=== PATIENT | female | born 1945 | race Caucasian/White ===

== ENCOUNTER 2017-11-10 16:29 | Inpatient (IN) | payer OTHER, BC ==
--- NOTE | 2017-11-10 21:46 | HP ---
CHIEF COMPLAINT: knee pain PCP: Socrates Gallegos HISTORY OF PRESENT ILLNESS: 72 year old female with a past medical history of DM, HTN, chronic anemia, breast CA, bilateral total knee replacements was admitted first to [facility] on 11/07/17 for a fall. Morning before the admission, she slipped on dirty floor and fell, hitting her head and her R knee without loss of consciousness. Patient has had worsening R knee pain for many months. Patient was worked up at [facility] previously for worsening R knee pain (this was prior to her fall). At that admission, patient had XR showing intact hardware and an effusion along with an elevated ESR/CRP and positive lyme titers - for which she was treated with amoxicillin. At [facility], her CT head and C spine was negative, but an xray of the R knee showed transverse fracture through patella. Ortho at [facility] was on the case there and aspirated the knee. Arthrocentesis showed 96% neutrophils, 97163 WBC, 23464 RBC, no crystals and cultures were pending. She was given a dose of vancomycin and ceftriaxone on 11/09. Patient was hypertensive despite being on her home amlodipine and quinapril, so the physicians at [facility] started metoprolol and HCTZ. Patient was transferred to [facility] per Dr. Pierre's request for surgical evaluation of the R knee. At present, patient was evaluated at bedside. She states that she fell on Sunday, falling forward and hitting her R knee and R side of her head. She states that her knee is in pain and rates it at around a 6-7/10. She also states that her knee has felt "hot". Patient showed us report of her lyme titers (5 positive IgGs and 1 positive IgM, suggestive of previous lyme infection). She states she does not have a fever currently. Denies any chest pain, SOB, nausea, vomiting, or diarrhea. Recent Travel: none PAST MEDICAL HISTORY: DM, HTN, chronic anemia, breast CA, bilateral total knee replacements PAST SURGICAL HISTORY: b/l knee replacements HOME MEDICATIONS: Amlodipine 5 Simvastatin 10 Accupril 10 Clobetasol cream 0.5 Metoprolol 25 (Started at [facility]) HCTZ 25 (started at [facility]) Glipizide REVIEW OF SYSTEMS CONSTITUTIONAL: Absent: fever, chills, diaphoresis, generalized weakness, malaise, loss of appetite, weight change HEENT: Absent: rhinorrhea, nasal congestion, throat pain, throat swelling, difficulty swallowing, mouth swelling, ear pain, eye pain, visual changes CARDIOVASCULAR: Absent: chest pain, syncope, palpitations, irregular heart rate, lightheadedness , peripheral edema RESPIRATORY: Absent: cough, shortness of breath, dyspnea with exertion, orthopnea, wheezing, stridor, hemoptysis GASTROINTESTINAL: Absent: abdominal pain, abdominal distension, nausea, vomiting, diarrhea, constipation, melena, hematochezia GENITOURINARY: Absent: dysuria, frequency, urgency, hesitancy, hematuria, flank pain, genital pain MUSCULOSKELETAL: arthralgia, joint swelling Absent: myalgia, back pain, neck pain SKIN: Absent: rash, itching, pallor HEMATOLOGIC/IMMUNOLOGIC: Absent: easy bleeding, easy bruising, lymphadenopathy, frequent infections ENDOCRINE: Absent: unexplained weight gain, unexplained weight loss, heat intolerance, cold intolerance NEUROLOGIC: Absent: headache, focal weakness or paresthesias, dizziness, unsteady gait, seizure, mental status changes, bladder or bowel incontinence PSYCHIATRIC: Absent: anxiety, depression, suicidal or homicidal ideation, hallucinations. PHYSICAL EXAMINATION GENERAL: Awake, alert, and fully oriented, in no acute distress. HEAD: mild traumatic abrasions noted on R side of forehead EYES: Pupils equal, round and reactive to light, extraocular movements intact, sclera anicteric, conjunctiva clear. No lid lag. EARS, NOSE, THROAT: Ears normal, nares patent, oropharynx clear without exudates. Moist mucous membranes. NECK: Normal range of motion, supple without lymphadenopathy, JVD, or masses. LUNGS: Breath sounds equal, clear to auscultation bilaterally. No wheezes, and no crackles. No accessory muscle use. HEART: Regular rate and rhythm, normal S1 and S2, 4/6 systolic murmur on R and L 2nd intercostal space ABDOMEN: Obese, Soft, nontender, not distended, normoactive bowel sounds, no guarding, no rebound, no masses. No hepatomegaly or splenomegaly. MUSCULOSKELETAL: Normal range of motion in upper extremities, limited range of motion of RLE, muscle strength 4/5 in RLE in hip flexion and R knee flexion. No bony deformities or tenderness. No CVA tenderness. UPPER EXTREMITIES: 2+ pulses, warm, well-perfused. No cyanosis. No clubbing. No peripheral edema. LOWER EXTREMITIES: 2+ pulses, warm, well-perfused. No calf tenderness. bilateral peripheral edema 2+, R knee warm to touch, non-tender to palpation, non-erythematous, scars visible from prior knee replacements NEUROLOGICAL: Cranial nerves II-XII intact. Normal speech. Normal gait. PSYCHIATRIC: Cooperative. Good eye contact. Appropriate mood and affect. SKIN: Warm, dry, normal turgor, no rashes or lesions noted, normal capillary refill. VITAL SIGNS ON EXAMINATION BP 133/110 HR 76 Temp 99.9 RR 16 O2 97% RA ASSESSMENT/PLAN: 72 year old female with a past medical history of DM, HTN, chronic anemia, breast CA, bilateral total knee replacements was transferred to [facility] per Dr. Abdulaziz Pierre for evaluation and management of R knee fracture. #Septic Right Knee: patient was febrile previously, current temp 99.9 with warm knee (not currently erythematous) and knee tap showing 96% neutrophils, 48583 WBC, 18332 RBC, no crystals and cultures were pending. -joint was already aspirated - Call [phone] (number at [facility]) and ask to speak with [employer] for updates on knee aspirate culture results -blood cultures -EKG -Vanc 1g/Ceftriaxone 2gm stat, revaluate Abx tomorrow per ID reccs -ID consult Dr. Fraser -Trend ESR/CRP -tylenol for fevers #Right Knee Fracture: -CT R knee w/o contrast with extension to distal femur and proximal tibia -stat CBC, CMP, Mg, Phos -patient can ambulate but only if her knee is in her brace -Physical therapy request -Dr. Pierre Consult #Lyme History: doesn't appear to be active disease - patient's lab values are with patient - 5 positive IgGs and 1 positive IgM -not likely picture of lyme, possibly previous lyme disease -Dr. arrington consult rheum requested by Dr. Abdulaziz Pierre -Appreciate ID recommendations #Hypertension: patient currently hypertensive -Start home amlodipine 5 QD -Start home accupril 10 QD -Start metoprolol 12.5 BID -Start HCTZ 25mg QD #Diabetes: unknown glucose level at present time -BGMs Q6 -ISS #FEN IV NS @ 83cc/hr - one bag Replete electrolytes as necessary Diabetic/Sodium diet #Prophylaxis Lovenox 30mg BID #Disposition -Admit to med-surg Visit type - Emergency Visit Emergency Visit: No - New Patient This patient is new to me today: Yes Date on this admission: 11/11/17 - Critical Care Critical Care patient: No
[2017-11-10] MEDS ORDERED: SODIUM CHLORIDE 1,000 ML IV SCH (23:30)
[2017-11-10] MEDS ORDERED: VANCOMYCIN 1,000 MG in DEXTROSE 5%-WATER - 250 ML IVPB ONE (23:45)
[2017-11-10] MEDS ORDERED: CEFTRIAXONE IN IS-OSM DEXTROSE 2 GM/50 ML BAG IVPB ONE (23:45)
[2017-11-10] MEDS ORDERED: CEFTRIAXONE 2 GM in DEXTROSE 5%-WATER - 100 ML IVPB ONE (23:50)
[2017-11-10] MEDS ORDERED: VANCOMYCIN 1 GRAM (PRE-DOCKED) 1,000 MG/250 ML BAG IVPB ONE (23:50)
--- NOTE | 2017-11-11 00:05 | PN ---
Teaching Attending Note Name of Resident: Michael Castorena ATTENDING PHYSICIAN STATEMENT I saw and evaluated the patient. Chart, data reviewed. I reviewed the resident's note and discussed the case with the resident. I agree with the resident's findings and plan as documented. SUBJECTIVE: 72yo obese woman with DM, HTN, chronic anemia, hx of breast ca, b/l TKR [address] [facility] to [facility] for concern of Prosthetic joint infection/septic arthritis of right knee. Patient is s/p fall a few days ago and landed on her knees and hit the right sided of her head. She has been experiencing worsening pain of her right knee s/p fall and reported that the knee is warm to touch and painful. Patient had unremarkable head CT and CT of spine at [facility]. She underwent arthrocentesis of right knee which showed 41, 000 wbc with 96% neutrophils, 96k rbc, no crystals. Cultures taken from synovial fluid. 11/09 it is noted that she had fever of 100.5F Blood cultures drawn. Pt was given vancomycin and ceftriaxone. Subsequently transferred to [facility] for possible surgical intervention. Patient noted to have lyme serology from 09/30- meeting criteria for + IgG but failed to meet IgM criteria. This suggest old Lyme infection which was previously treated. OBJECTIVE: Last Vital Signs Temp Pulse Resp BP Pulse Ox 98.3 F 67 21 132/62 11/10/17 20:00 11/10/17 20:00 11/10/17 20:00 11/10/17 20:00 General- appears comfortable, NAD, aaox3, in good spirits HEENT- at, nc, poor dentition neck -supple, no JVD, no masses cv-s1+s2+ RRR, + systolic murmur Chest - cta b/l abdomen- obese, nt, BS+ Ext- lower ext pitting edema b/l Right knee -old vertical scar, warm to touch ASSESSMENT AND PLAN: #Concern for prosthetic joint infection/septic arthritis given Hx of pain, fever , and neutrophil predominant high WBC count from arthocentesis. Blood cultures and synovial fluid cultures drawn at outside hospital and are to be followed up. Doubt gout or pseudogout as there were no crystals seen on arthrocentesis specimen. Lyme serology c/w old Lyme infection. -blood cx x2 -f/u blood, synovial fluid cultures from [facility] -CT of right knee -Ceftriaxone 2g IV stat -vancomcyin 1g IV stat -Orthopedics evaluation for surgical intervention and possible hardware removal. -ID consult for possible septic arthritis and any further workup for Lyme -continue home medications for chronic medical problems -heparin sc for DVT ppx
--- NOTE | 2017-11-11 00:39 | PN ---
Progress Note (short form) - Note Progress Note: 72F s/p mechanical fall 4 days [employer] p/w RIGHT dmitri-prosthetic (TKA) patella fx. Pt. transferred from [facility], [facility]. (+) Outside Lyme's Disease titers. All outside ([facility]) labs and vitals reviewed. At [facility], WBC 7, ESR 85 & CRP 4.2. Pt. apyrexic; no concern for sepsis. Right knee arthrocentesis ([facility]): - 35cc sanguinous fluid. - WBC: 41,800. - 96% segmented neutrophils. - 0 crystals. PE: AAO x 3, NAD. Right Knee: Skin intact. (+) Diffuse RLE lymphedema. Midline incision well healed, intact. (-) TTP. (+) Mild warmth, dmitri-articular soft tissue swelling. ( -) Erythema, drainage. (+) Sulcus sign over patellar fracture gap w/(+) resolving ecchymosis. Able to SLR w/30 deg. extension lag. NVI distally. Outside ([facility]) R Knee X-Rays: Cemented TKA components intact & in place w/good overall alignment. (+) Transverse dmitri-prosthetic patellar fx. No other evidence of subsidence nor loosening. A/P: 72F s/p mechanical fall 4 days [employer] p/w RIGHT dmitri-prosthetic (TKA) patella fx. -Pain control. -Chemical & mechanical DVT PPx. -Incentive spirometry. -Maintain right knee immobilizer at all times. -No ROM right knee. -PT/OT/Rehab, OOBTC. -TTWB RLE. -Please obtain ID & rheumatology consultations for management given (+) outside Lyme's titers. -Hold all empiric antibiotics at this time. If full prosthesis explantation is ultimately indicated, empiric antibiotics may compromise definitive pathogen culture and directed treatment. -Will f/u right knee aspirate Gram Stain & culture ([facility]). -Care per primary medical team. -Will follow. Abdulaziz Pierre MD (Orthopaedic Surgery.
[2017-11-11] MEDS: ACETAMINOPHEN 325 MG TABLET (FP) PO PRN ×3 (02:12→21:47)
[2017-11-11] MEDS: METOPROLOL TARTRATE 25 MG TABLET (FP) PO SCH ×3 (02:13→21:47)
[2017-11-11 02:20] LABS: BASO % 1.2 % (0-2.0); EOS % 3.3 % (0-4.5); HEMATOCRIT 31.7 % (32.4-45.2); HEMOGLOBIN 10.1 GM/dL (10.7-15.3); LYMPH % 18.1 % (8-40); MCH 22.3 pg (25.7-33.7); MEAN CELL VOLUME 69.7 fl (80-96); MEAN PLT VOLUME 8.3 fl (7.5-11.1); MONO % 12.7 % (3.8-10.2); NEUT % 64.7 % (42.8-82.8); PLATELET COUNT 217 K/MM3 (134-434); RBC 4.55 M/mm3 (3.60-5.2); RDW 16.8 % (11.6-15.6); WHITE BLOOD COUNT 5.9 K/mm3 (4.0-10.0)
[2017-11-11 02:23] LABS: ADD RBC MORPHOLOGY YES
[2017-11-11] MEDS ORDERED: ENOXAPARIN NA (PORCINE) 30 MG/0.3 ML DISP.SYRIN SQ ONE (02:30)
[2017-11-11 02:32] LABS: ALBUMIN 2.7 g/dl (3.4-5.0); ANION GAP 10 (8-16); BILIRUBIN,TOTAL 1.2 mg/dL (0.2-1.0); BLOOD UREA NITROGEN 11 mg/dL (7-18); CALCIUM 8.8 mg/dL (8.5-10.1); CHLORIDE 103 mmol/L (98-107); CO2 25 mmol/L (21-32); CREATININE 0.7 mg/dL (0.55-1.02); GLUCOSE,RANDOM 168 mg/dL (74-106); MAGNESIUM 1.8 mg/dL (1.8-2.4); PHOSPHOROUS 2.7 mg/dL (2.5-4.9); POTASSIUM 3.8 mmol/L (3.5-5.1); SGOT/AST 55 U/L (15-37); SGPT/ALT 23 U/L (12-78); SODIUM 138 mmol/L (136-145); TOT PROT 7.5 g/dl (6.4-8.2)
[2017-11-11 02:33] LABS: ALK PHOS 100 U/L (45-117)
[2017-11-11 03:05] LABS: ANISOCYTOSIS 2+; MACROCYTOSIS 0; OVALOCYTE 1+
[2017-11-11 04:34] VITALS: BMI 36.1
[2017-11-11] MEDS: INSULIN SLIDING SCALE (NOVOLOG) 1 VIAL SQ SCH ×4 (06:14→21:48)
[2017-11-11 08:51] LABS: HEMATOCRIT 30.3 % (32.4-45.2); HEMOGLOBIN 9.7 GM/dL (10.7-15.3); MCHC 31.9 g/dl (32.0-36.0); MEAN CELL VOLUME 68.9 fl (80-96); MEAN PLT VOLUME 8.6 fl (7.5-11.1); PLATELET COUNT 216 K/MM3 (134-434); RBC 4.39 M/mm3 (3.60-5.2); RDW 16.5 % (11.6-15.6); WHITE BLOOD COUNT 5.6 K/mm3 (4.0-10.0)
[2017-11-11 09:05] LABS: ANION GAP 10 (8-16); BLOOD UREA NITROGEN 9 mg/dL (7-18); CALCIUM 7.8 mg/dL (8.5-10.1); CHLORIDE 107 mmol/L (98-107); CO2 23 mmol/L (21-32); CREATININE 0.6 mg/dL (0.55-1.02); GLUCOSE,RANDOM 140 mg/dL (74-106); MAGNESIUM 1.7 mg/dL (1.8-2.4); PHOSPHOROUS 3.1 mg/dL (2.5-4.9); POTASSIUM 3.8 mmol/L (3.5-5.1); SODIUM 140 mmol/L (136-145)
[2017-11-11] MEDS ORDERED: MAGNESIUM SULF 50% (8.12 MEQ/2 ML-1 GM VIAL) IVPB ONE (09:20)
[2017-11-11] MEDS ORDERED: MAGNESIUM SULFATE IN WATER 2 GM/50 ML IVPB IVPB ONE (09:30)
--- NOTE | 2017-11-11 09:33 | PN ---
Progress Note (short form) - Note Progress Note: Subjective: no pain in R knee, no CP or OSB . feels better than before . knows of a heart murmur since childhood Objective: Vital Signs: Vital Signs - 24 hr 11/10/17 11/11/17 20:00 06:00 Temperature 100 F H 98.3 F Pulse Rate 76 67 Respiratory 21 20 Rate Blood Pressure 133/110 132/55 Laboratory Results - last 24 hr 11/10/17 11/11/17 11/11/17 22:50 01:40 01:40 WBC 5.9 RBC 4.55 Hgb 10.1 L Hct 31.7 L MCV 69.7 L MCH 22.3 L MCHC 32.0 RDW 16.8 H Plt Count 217 MPV 8.3 Neutrophils % 64.7 Lymphocytes % 18.1 Monocytes % 12.7 H Eosinophils % 3.3 Basophils % 1.2 Hypochromia 1+ Polychromasia 2+ Poikilocytosis 2+ Anisocytosis 2+ Microcytosis 2+ Macrocytosis 0 Ovalocytes 1+ Sodium 138 Potassium 3.8 Chloride 103 Carbon Dioxide 25 Anion Gap 10 BUN 11 Creatinine 0.7 Creat Clearance w eGFR > 60 POC Glucometer 231 Random Glucose 168 H Calcium 8.8 Phosphorus 2.7 Magnesium 1.8 Total Bilirubin 1.2 H AST 55 H ALT 23 Alkaline Phosphatase 100 C-Reactive Protein Total Protein 7.5 Albumin 2.7 L Blood Type Antibody Screen 11/11/17 11/11/17 11/11/17 01:45 01:45 06:13 WBC RBC Hgb Hct MCV MCH MCHC RDW Plt Count MPV Neutrophils % Lymphocytes % Monocytes % Eosinophils % Basophils % Hypochromia Polychromasia Poikilocytosis Anisocytosis Microcytosis Macrocytosis Ovalocytes Sodium Potassium Chloride Carbon Dioxide Anion Gap BUN Creatinine Creat Clearance w eGFR POC Glucometer 145 Random Glucose Calcium Phosphorus Magnesium Total Bilirubin AST ALT Alkaline Phosphatase C-Reactive Protein 2.7 H Total Protein Albumin Blood Type B POSITIVE Antibody Screen Negative 11/11/17 11/11/17 11/11/17 07:30 07:30 07:30 WBC 5.6 RBC 4.39 Hgb 9.7 L Hct 30.3 L MCV 68.9 L MCH 22.0 L MCHC 31.9 L RDW 16.5 H Plt Count 216 MPV 8.6 Neutrophils % Lymphocytes % Monocytes % Eosinophils % Basophils % Hypochromia Polychromasia Poikilocytosis Anisocytosis Microcytosis Macrocytosis Ovalocytes Sodium 140 Potassium 3.8 Chloride 107 Carbon Dioxide 23 Anion Gap 10 BUN 9 Creatinine 0.6 Creat Clearance w eGFR POC Glucometer Random Glucose 140 H Calcium 7.8 L Phosphorus 3.1 Magnesium 1.7 L Total Bilirubin AST ALT Alkaline Phosphatase C-Reactive Protein 2.5 H Total Protein Albumin Blood Type Antibody Screen Physical Exam: NAD MMM. round equal pupils, no LAP in neck , no facial droop CV: RRR, 3/6 SM at base radiating to carotids, and LLSB. 3/6 SM at [place] with rad to axilla . Lungs : CTAb ext: thick , hyperpigmented skin with trace edema. b/l knee scars. R knee with dark hyperpigmented skin/slight erythema , incrased warmth and no TTP . DP 2+ Abd: soft, Nt, ND , NL BS cxray reviewed. records from [facility] reviewed. Assessment/Plan: 72 y/o lady with h/o DM , HTN, b/l TKR , chronic anemia, breast cancer s/p lumbectomy and Rtx , who presented to [facility] with R knee pain after a fall on , was found to have R patellar Fx and a knee effusion , and was transferred here for further eval per ortho 1- R knee effusion: with 41k WBC with 96% neutro, will be concerned fro septic joint despite no leukocytosis , but she had fever in [facility]. of course fluid analysis could be inflammatory . - would cover with Abx , pending synovial fluid cx and blood cx from [facility], and pending ID eval - ceftriaxone q 24 hr , and vanco ( dose at [facility] ) - synovial fluid cx was sent before first dose of vanco at [facility] , but pt was on amoxi as out pt for possible lyme - with the murmur heard on exam, will get Echo - ortho input appreciated. - ESR as out pt 130, CRP 5.8 --> ESR 85 & CRP 4.2 at [facility] ----> CRP 2.5 now , will check ESR - Internal med team at [facility] called [phone] , blood and synovial fluid cx is still pending - rheum consulted - UA 2.5 on 10/11/17 2- R patellar Fx : - immobilizer - tip toe WB - OOBTC - further mgt per ortho 3- HTN: cont norvasc , HCTZ, accuipril and lopressor. dc IVF 4- Microcytic anemia : chronic . - iron studies at [facility] included iron 79, TIBC 2009 L ) , transferrin 160 ( L ) , but no ferritin . - check ferritin - possible ACD, but with microcytosis might consider thalassemia , or other causes. will follow ferritin 5- Positive lyme titers, 10/11/17 indicating + igG ( 5 + bands ) , but ( 1+ band Ig M ) - ID help appreciated . 6- DM : SSI , hold orals 7- HLOC Visit type - Emergency Visit Emergency Visit: Yes ED Registration Date: 11/10/17 Care time: The patient presented to the Emergency Department on the above date and was hospitalized for further evaluation of their emergent condition. - New Patient This patient is new to me today: Yes Date on this admission: 11/11/17 - Critical Care Critical Care patient: No
[2017-11-11] MEDS: HYDROCHLOROTHIAZIDE 25 MG TABLET (FP) PO SCH (10:00)
[2017-11-11] MEDS: QUINAPRIL HCL 10 MG TABLET (FP) PO SCH (10:00)
[2017-11-11] MEDS: amLODIPine BESYLATE 5 MG TABLET (FP) PO SCH (10:00)
[2017-11-11] MEDS ORDERED: CEFTRIAXONE 1 G/50 ML PREMIX 50 ML IVPB SCH (10:30)
--- NOTE | 2017-11-11 14:59 | PN ---
Progress Note (short form) - Note Progress Note: 72F s/p mechanical fall 4 days [employer] p/w RIGHT dmitri-prosthetic (TKA) patella fx. Pain well controlled. No acute events overnight. (-) Chest pain, shortness of breath, nausea, vomiting, chills, sweats. (+) Voiding; (+) Flatus; (+) BM. Pt. transferred from [facility], [facility]. (+) Outside Lyme's Disease titers. All outside ([facility]) labs and vitals reviewed. At [facility], WBC 7, ESR 85 & CRP 4.2. Pt. apyrexic; no concern for sepsis. Right knee arthrocentesis ([facility]): - 35cc sanguinous fluid. - WBC: 41,800. - 96% segmented neutrophils. - 0 crystals. - Gram stain: NEGATIVE. - Culture: No growth to date x 2 days. PE: AAO x 3, NAD. Right Knee: Skin intact. (+) Diffuse, chronic RLE lymphedema. Midline incision well healed, intact. (-) TTP. (+) Mild warmth, dmitri-articular soft tissue swelling. (-) Erythema, drainage. (+) Sulcus sign over patellar fracture gap w/( +) resolving ecchymosis. Able to SLR w/30 deg. extension lag. NVI distally. Outside ([facility]) R Knee X-Rays: Cemented TKA components intact & in place w/good overall alignment. (+) Transverse dmitri-prosthetic patellar fx. No other evidence of subsidence nor loosening. A/P: 72F s/p mechanical fall 4 days [employer] p/w RIGHT dmitri-prosthetic (TKA) patella fx. -Very low clinical concern for septic arthritis right knee. -Pain control. -Chemical & mechanical DVT PPx. -Incentive spirometry. -Maintain right knee immobilizer at all times. -No ROM right knee. -PT/OT/Rehab, OOBTC. -TTWB RLE. -Please obtain ID & rheumatology consultations for management given (+) outside Lyme's titers. -Hold all empiric antibiotics at this time. If full prosthesis explantation is ultimately indicated, empiric antibiotics may compromise definitive pathogen culture and directed treatment. -Will f/u right knee aspirate Gram Stain & culture ([facility]). -Care per primary medical team. -Will follow. Abdulaziz Pierre MD (Orthopaedic Surgery.
--- NOTE | 2017-11-11 16:17 | PN ---
Progress Note (short form) - Note Progress Note: ID Consult dictated R TKA periprosthetic patella fracture s/p fall ? Septic arthritis + Lyme serology of questionable significance Await R knee aspirate cultures Observe off antibiotics Repeat lyme serology
[2017-11-11] MEDS: ENOXAPARIN NA (PORCINE) 30 MG/0.3 ML DISP.SYRIN SQ SCH (18:24)
[2017-11-11] MEDS ORDERED: INSULIN (NOVOLOG) ASPART 100 UNITS/ML 10ML VIAL ONE (18:36)
--- NOTE | 2017-11-11 18:54 | CONS ---
DATE OF CONSULTATION: DATE OF DICTATION: 11/11/2017 The patient is a 72-year-old female evaluated for possible septic arthritis. The patient was admitted to [facility] [place] November 07, 2017, after a mechanical fall. She had sustained trauma to her right knee and to her head prior to admission. She was found to have left knee pain and swelling. A knee tap was performed and yielded 35 mL of sanguineous fluid. Cell count revealed 41,000 white cells, 96% neutrophils, gram stain and crystals were reported as negative. She had been given doses of vancomycin and ceftriaxone. She is now admitted for further evaluation. X-rays showed a right TKA periprosthetic patellar fracture. She denies any pain at the present time. No fever or chills. Of note, patient reports having chronic right knee pain dating back several months prior to the fall and injury. A line titer was done in September and showed an ROSARIO of 0.95, which is slightly reactive, as well as several positive bands on western blot. Patient states she might have had a tick bite on the left upper extremity in the past; however, denies history of erythema migrans. He has a history of a chronic heart murmur. No other neurological complaints were offered. Past medical history positive for diabetes mellitus, hypertension, breast cancer, chronic anemia. PAST SURGICAL HISTORY: Status post breast lumpectomy, status post bilateral total knee replacement in 2014 and 2016. Allergies to SULFA. MEDICATIONS: Amlodipine, simvastatin, Accupril. SOCIAL HISTORY: Lives at home with family. Nonsmoker, nondrinker. SYSTEMS REVIEW: Neurologic: No loss of consciousness, seizure activity, focal weakness. Cardiac: Negative chest pain or palpitations. Respiratory: Negative cough or sputum production. Gastrointestinal: Negative vomiting or diarrhea. Genitourinary: Negative for urinary tract infection. LABORATORY DATA: White count 5.6, hematocrit 30.3, platelet count 216. BUN 9, creatinine 0.6, ESR 51, C-reactive protein 2.5. PHYSICAL EXAMINATION: General: She is awake and alert. She is out of bed to chair. Vital Signs: Temperature 98.2. Blood pressure 134/52. Pulse 66, regular. Respiration 20 per minute. Eyes: Sclerae anicteric. Heart Sounds: S1, S2, with a 2/6 pansystolic murmur. Lungs: Clear. Abdomen: Soft. No tenderness elicited. No mass, rebound or rigidity. Extremities: Bilateral lower extremity lymphedema with chronic venous stasis dermatitis. There are healed surgical scars over both knees. There is slight warmth and swelling of the right knee. No erythema is noted. Ecchymotic areas are present on the right lower extremity. No crepitus or fluctuance. IMPRESSION: 1. Right total knee arthroplasty periprosthetic patellar fracture status post mechanical fall. 2. Possible septic arthritis. 3. Positive line serology of questionable significance. Await right knee aspirate cultures, observe off antibiotic therapy. Will repeat line serology. Patient states she had been treated in the past with amoxicillin for unclear duration of time. Will discuss with Orthopedics. Thank you for the kind referral. JOSEFINA SAENZ M.D. [id number]
[2017-11-11] MEDS: ATORVASTATIN CA 10 MG TABLET (FP) PO SCH (21:47)
[2017-11-12] MEDS: ENOXAPARIN NA (PORCINE) 30 MG/0.3 ML DISP.SYRIN SQ SCH ×2 (06:33→17:33)
[2017-11-12] MEDS: INSULIN SLIDING SCALE (NOVOLOG) 1 VIAL SQ SCH ×3 (06:33→22:07)
[2017-11-12] MEDS ORDERED: PT OWN MED DRAWER 7, Y5N ONE ×2 (06:42→10:56)
[2017-11-12 08:30] LABS: BASO % 1.5 % (0-2.0); EOS % 5.3 % (0-4.5); HEMATOCRIT 31.3 % (32.4-45.2); LYMPH % 35.1 % (8-40); MCH 22.2 pg (25.7-33.7); MCHC 32.1 g/dl (32.0-36.0); MEAN CELL VOLUME 69.1 fl (80-96); MEAN PLT VOLUME 8.1 fl (7.5-11.1); MONO % 13.9 % (3.8-10.2); NEUT % 44.2 % (42.8-82.8); PLATELET COUNT 198 K/MM3 (134-434); RBC 4.52 M/mm3 (3.60-5.2); RDW 16.9 % (11.6-15.6); WHITE BLOOD COUNT 5.3 K/mm3 (4.0-10.0)
[2017-11-12 09:25] LABS: MAGNESIUM 1.7 mg/dL (1.8-2.4); PHOSPHOROUS 2.9 mg/dL (2.5-4.9); POTASSIUM 3.7 mmol/L (3.5-5.1)
[2017-11-12] MEDS: HYDROCHLOROTHIAZIDE 25 MG TABLET (FP) PO SCH (10:58)
[2017-11-12] MEDS: METOPROLOL TARTRATE 25 MG TABLET (FP) PO SCH ×2 (10:58→22:04)
[2017-11-12] MEDS: amLODIPine BESYLATE 5 MG TABLET (FP) PO SCH (10:58)
[2017-11-12] MEDS: QUINAPRIL HCL 10 MG TABLET (FP) PO SCH (11:00)
[2017-11-12] MEDS: ACETAMINOPHEN 325 MG TABLET (FP) PO PRN ×2 (11:11→22:06)
--- NOTE | 2017-11-12 11:41 | PN ---
Progress Note (short form) - Note Progress Note: ID Knee in a brace CT imaging shows hemarthosis with fracture of patella and bilateral prothesis knees Selected Entries 11/12/17 05:40 Temperature 98.8 F Pulse Rate 70 Respiratory 21 Rate Blood Pressure 134/56 Microbiology 11/11/17 01:40 Blood - Peripheral Venous Blood Culture - Preliminary NO GROWTH OBTAINED AFTER 24 HOURS, INCUBATION TO CONTINUE FOR 4 DAYS. 11/11/17 01:40 Blood - Peripheral Venous Blood Culture - Preliminary NO GROWTH OBTAINED AFTER 24 HOURS, INCUBATION TO CONTINUE FOR 4 DAYS. Laboratory Tests 11/11/17 11/12/17 07:56 07:00 WBC 5.3 RBC 4.52 Hgb 10.0 L Plt Count 198 ESR 51 H Assessment Fracture of the patellar At this point do not feel this is an infectious process of the knee CRP low Most likely trauma fracture related Plan Kindly recall as needed discussed with ROSEANNA Fraser MD
--- NOTE | 2017-11-12 17:08 | PN ---
Physical Exam: SUBJECTIVE: Patient seen and examined at bedside. No acute complaints, and no further pain in the R knee. Denies chest pain, SOB, nausea, vomiting, diarrhea, fevers, chills. OBJECTIVE: Vital Signs Period Temp Pulse Resp BP Sys/Uribe Pulse Ox Last 24 Hr 98.8 F-100 F 70-101 20-22 134-153/56-71 GENERAL: Awake, alert, and fully oriented, in no acute distress. LUNGS: Breath sounds equal, clear to auscultation bilaterally. No wheezes, and no crackles. No accessory muscle use. HEART: Regular rate and rhythm, normal S1 and S2, 4/6 systolic murmur on R and L 2nd intercostal space ABDOMEN: Obese, Soft, nontender, not distended, normoactive bowel sounds, no guarding, no rebound, no masses. No hepatomegaly or splenomegaly. MUSCULOSKELETAL: Normal range of motion in upper extremities, limited range of motion of RLE, muscle strength 4/5 in RLE in hip flexion and R knee flexion. No bony deformities or tenderness. No CVA tenderness. UPPER EXTREMITIES: 2+ pulses, warm, well-perfused. No cyanosis. No clubbing. No peripheral edema. LOWER EXTREMITIES: 2+ pulses, warm, well-perfused. No calf tenderness. bilateral peripheral edema 2+, non-tender to palpation, non-erythematous, scars visible from prior knee replacements NEUROLOGICAL: Cranial nerves II-XII intact. Normal speech. Normal gait. PSYCHIATRIC: Cooperative. Good eye contact. Appropriate mood and affect. SKIN: Warm, dry, normal turgor, no rashes or lesions noted, normal capillary refill. Laboratory Results - last 24 hr 11/11/17 11/11/17 11/12/17 18:21 21:44 06:32 WBC RBC Hgb Hct MCV MCH MCHC RDW Plt Count MPV Neutrophils % Lymphocytes % Monocytes % Eosinophils % Basophils % Potassium POC Glucometer 219 244 170 Phosphorus Magnesium Ferritin 11/12/17 11/12/17 07:00 07:00 WBC 5.3 RBC 4.52 Hgb 10.0 L Hct 31.3 L MCV 69.1 L MCH 22.2 L MCHC 32.1 RDW 16.9 H Plt Count 198 MPV 8.1 Neutrophils % 44.2 D Lymphocytes % 35.1 D Monocytes % 13.9 H Eosinophils % 5.3 H Basophils % 1.5 Potassium 3.7 POC Glucometer Phosphorus 2.9 Magnesium 1.7 L Ferritin 606.942 H Active Medications Generic Name Dose Route Start Last Admin Trade Name Freq PRN Reason Stop Dose Admin Acetaminophen 650 mg 11/10/17 23:27 11/12/17 11:11 Tylenol - PO 650 mg Q6H PRN Administration PAIN Amlodipine Besylate 5 mg 11/11/17 10:00 11/12/17 10:58 Norvasc - PO 5 mg DAILY LUAN Administration Atorvastatin Calcium 10 mg 11/11/17 22:00 11/11/17 21:47 Lipitor - PO 10 mg HS LUAN Administration Enoxaparin Sodium 30 mg 11/11/17 18:00 11/12/17 06:33 Lovenox - SQ 30 mg Q12H LUAN Administration Hydrochlorothiazide 25 mg 11/11/17 10:00 11/12/17 10:58 Hctz - PO 25 mg DAILY LUAN Administration Insulin Aspart 1 vial 11/11/17 07:00 11/12/17 06:33 Novolog Vial Sliding Scale - SQ 2 units ACHS LUAN Administration Protocol Metoprolol Tartrate 12.5 mg 11/10/17 23:45 11/12/17 10:58 Lopressor - PO 12.5 mg BID LUAN Administration Non-Formulary Medication 1 tube 11/11/17 10:00 Clobetasol Prop 0.05% Tp Oint [Temovate (Nf)] .ROUTE DAILY LUAN Quinapril HCl 10 mg 11/11/17 10:00 11/12/17 11:00 Accupril - PO 10 mg DAILY LUAN Administration ASSESSMENT/PLAN: 72 year old female with a past medical history of DM, HTN, chronic anemia, breast CA, bilateral total knee replacements was transferred to [facility] per Dr. Abdulaziz Pierre for evaluation and management of R knee fracture. #Right Knee Effusion: patient was febrile previously, knee tap showing 96% neutrophils, 34348 WBC, 38789 RBC, no crystals and cultures returned initially as no growth - Call [phone] (number at [facility] medical assistant secretary) and ask to speak with RED [employer] for updates on knee aspirate culture results - need to call again tomorrow -if final cultures negative, no surgery will be done (D/W attending physician) and management will be supportive -blood cultures negative -ID does not believe it is a septic joint, no current abx -ID consult Dr. Fraser -tylenol for fevers #Right Knee Fracture: stable currently -CT R knee w/o contrast showed R patellar fracture with surrounding hemarthrosis -patient can ambulate but only if her knee is in her brace -Physical therapy request -Dr. Pierre Consult #Lyme History: doesn't appear to be active disease - patient's lab values are with patient - 5 positive IgGs and 1 positive IgM -not likely picture of lyme, possibly previous lyme disease -Dr. arrington consult rheum requested by Dr. Abdulaziz Pierre -Appreciate ID recommendations #Hypertension: stbale -Start home amlodipine 5 QD -Start home accupril 10 QD -Start metoprolol 12.5 BID -Start HCTZ 25mg QD #Diabetes: stable -BGMs Q6 -ISS #FEN No standing fluids Replete electrolytes as necessary Diabetic/Sodium diet #Prophylaxis Lovenox 30mg BID #Disposition -Continue to monitor on med-surg Visit type - Emergency Visit Emergency Visit: No - New Patient This patient is new to me today: No - Critical Care Critical Care patient: No
[2017-11-12] MEDS ORDERED: INSULIN (NOVOLOG) ASPART 100 UNITS/ML 10ML VIAL ONE (17:13)
--- NOTE | 2017-11-12 17:37 | PN ---
Teaching Attending Note Name of Resident: Michael Castorena ATTENDING PHYSICIAN STATEMENT I saw and evaluated the patient. I reviewed the resident's note and discussed the case with the resident. I agree with the resident's findings and plan as documented. SUBJECTIVE: No fever or chills, feels great , has no PIAn in joint OBJECTIVE: NAD MMM. CV: RRR, 3/6 SM [place] base radiating to carotids, and LLSB. 3/6 SM at [place] with rad to axilla . Lungs : CTAb ext: thick , hyperpigmented skin with trace edema. b/l knee scars. R knee with dark hyperpigmented skin, no erythema today ,Nl warmth today . DP 2+ cxray reviewed. records from [facility] reviewed. Assessment/Plan: 72 y/o lady with h/o DM , HTN, b/l TKR , chronic anemia, breast cancer s/p lumbectomy and Rtx , who presented to [facility] with R knee pain after a fall on , was found to have R patellar Fx and a knee effusion , and was transferred here for further eval per ortho 1- R knee effusion: with 41k WBC with 96% neutro [facility] called and synovial fluid is Neg to date . G stain neg monitor off Abx 2- R patellar Fx : - immobilizer - tip toe WB - OOBTC - further mgt per ortho 3- HTN: cont norvasc , HCTZ, accuipril and lopressor. 4- Microcytic anemia : chronic . - iron studies at [facility] along with ferritin here indicate ACD 5- Positive lyme titers, 10/11/17 indicating + igG - No treatment per ID 6- DM : SSI , hold orals 7- HLOC
--- NOTE | 2017-11-12 19:45 | PN ---
Progress Note (short form) - Note Progress Note: 72F s/p mechanical fall 4 days [employer] p/w RIGHT dmitri-prosthetic (TKA) patella fx. Pain well controlled. No acute events overnight. (-) Chest pain, shortness of breath, nausea, vomiting, chills, sweats. (+) Voiding; (+) Flatus; (+) BM. Pt. apyrexic; no concern for sepsis. Right knee arthrocentesis ([facility]): - Culture: No growth to date x 3 days. PE: AAO x 3, NAD. Right Knee: Skin intact. (+) Diffuse, chronic RLE lymphedema. Midline incision well healed, intact. (-) TTP. (+) Mild warmth, dmitri-articular soft tissue swelling. (-) Erythema, drainage. (+) Sulcus sign over patellar fracture gap w/( +) resolving ecchymosis. Able to SLR w/30 deg. extension lag. NVI distally. CT R Knee: (+) Transverse patella fracture. Well seated TKA components w/no evidence of loosening. A/P: 72F s/p mechanical fall 4 days [employer] p/w RIGHT dmitri-prosthetic (TKA) patella fx. -Very low clinical concern for septic arthritis right knee. -Pain control. -Chemical & mechanical DVT PPx. -Incentive spirometry. -Maintain right knee immobilizer at all times; will obtain drop-lock hinged right knee brace. -PT/OT/Rehab, OOBTC. -TTWB RLE. -f/u ID & rheumatology rec's; no concern for active Lyme's disease at this time. -Hold all empiric antibiotics at this time. If full prosthesis explantation is ultimately indicated, empiric antibiotics may compromise definitive pathogen culture and directed treatment. -Will f/u right knee aspirate Gram Stain & culture ([facility]). -Care per primary medical team. -Will follow. Abdulaziz Pierre MD (Orthopaedic Surgery.
[2017-11-12] MEDS: ATORVASTATIN CA 10 MG TABLET (FP) PO SCH (22:04)
[2017-11-13] MEDS: ENOXAPARIN NA (PORCINE) 30 MG/0.3 ML DISP.SYRIN SQ SCH ×2 (06:57→18:31)
[2017-11-13] MEDS: INSULIN SLIDING SCALE (NOVOLOG) 1 VIAL SQ SCH ×5 (07:02→21:47)
[2017-11-13 08:18] LABS: HEMATOCRIT 33.3 % (32.4-45.2); HEMOGLOBIN 10.6 GM/dL (10.7-15.3); MCHC 31.9 g/dl (32.0-36.0); MEAN CELL VOLUME 68.8 fl (80-96); MEAN PLT VOLUME 8.9 fl (7.5-11.1); PLATELET COUNT 210 K/MM3 (134-434); RBC 4.84 M/mm3 (3.60-5.2); RDW 16.4 % (11.6-15.6); WHITE BLOOD COUNT 5.3 K/mm3 (4.0-10.0)
[2017-11-13 08:27] LABS: CHLORIDE 104 mmol/L (98-107); POTASSIUM 4.1 mmol/L (3.5-5.1); SODIUM 138 mmol/L (136-145)
[2017-11-13 08:34] LABS: ANION GAP 10 (8-16); BLOOD UREA NITROGEN 16 mg/dL (7-18); CO2 24 mmol/L (21-32); CREATININE 0.7 mg/dL (0.55-1.02); GLUCOSE,RANDOM 151 mg/dL (74-106)
[2017-11-13 08:43] LABS: ADD RBC MORPHOLOGY YES
[2017-11-13] MEDS ORDERED: PT OWN MED DRAWER 7, Y5N ONE (09:56)
[2017-11-13] MEDS: amLODIPine BESYLATE 5 MG TABLET (FP) PO SCH (09:59)
[2017-11-13] MEDS: METOPROLOL TARTRATE 25 MG TABLET (FP) PO SCH ×2 (09:59→21:47)
[2017-11-13] MEDS: HYDROCHLOROTHIAZIDE 25 MG TABLET (FP) PO SCH (09:59)
[2017-11-13] MEDS: QUINAPRIL HCL 10 MG TABLET (FP) PO SCH (09:59)
[2017-11-13] MEDS ORDERED: INSULIN (NOVOLOG) ASPART 100 UNITS/ML 10ML VIAL ONE (11:28)
--- NOTE | 2017-11-13 16:55 | PN ---
Physical Exam: SUBJECTIVE: Patient seen and examined at bedside. No acute overnight events. Denies any pain in her legs. No chest pain, SOB, nausea, vomiting, diarrhea. States that she can walk with a brace on the R knee. OBJECTIVE: Vital Signs Period Temp Pulse Resp BP Sys/Uribe Pulse Ox Last 24 Hr 99.1 F-99.8 F 74-87 20-20 127-156/55-76 GENERAL: Awake, alert, and fully oriented, in no acute distress. LUNGS: Breath sounds equal, clear to auscultation bilaterally. No wheezes, and no crackles. No accessory muscle use. HEART: Regular rate and rhythm, normal S1 and S2, 4/6 systolic murmur on R and L 2nd intercostal space ABDOMEN: Obese, Soft, nontender, not distended, normoactive bowel sounds, no guarding, no rebound, no masses. No hepatomegaly or splenomegaly. MUSCULOSKELETAL: Normal range of motion in upper extremities, improved ROM of R knee compared to yesterday in flexion. No bony deformities or tenderness. No CVA tenderness. b/l longitudinal scars noted from previous knee replacements. UPPER EXTREMITIES: 2+ pulses, warm, well-perfused. No cyanosis. No clubbing. No peripheral edema. LOWER EXTREMITIES: 2+ pulses, warm, well-perfused. No calf tenderness. bilateral peripheral edema 2+, non-tender to palpation, non-erythematous, scars visible from prior knee replacements NEUROLOGICAL: Cranial nerves II-XII intact. Normal speech. Normal gait. PSYCHIATRIC: Cooperative. Good eye contact. Appropriate mood and affect. SKIN: Warm, dry, normal turgor, no rashes or lesions noted, normal capillary refill. Laboratory Results - last 24 hr 11/12/17 11/12/17 11/13/17 17:11 21:24 06:00 WBC 5.3 RBC 4.84 Hgb 10.6 L Hct 33.3 MCV 68.8 L MCH 22.0 L MCHC 31.9 L RDW 16.4 H Plt Count 210 MPV 8.9 Sodium Potassium Chloride Carbon Dioxide Anion Gap BUN Creatinine POC Glucometer 270 185 Random Glucose Calcium 11/13/17 11/13/17 11/13/17 06:00 06:53 11:17 WBC RBC Hgb Hct MCV MCH MCHC RDW Plt Count MPV Sodium 138 Potassium 4.1 Chloride 104 Carbon Dioxide 24 Anion Gap 10 BUN 16 Creatinine 0.7 POC Glucometer 161 228 Random Glucose 151 H Calcium 9.0 Active Medications Generic Name Dose Route Start Last Admin Trade Name Freq PRN Reason Stop Dose Admin Acetaminophen 650 mg 11/10/17 23:27 11/12/17 22:06 Tylenol - PO 650 mg Q6H PRN Administration PAIN Amlodipine Besylate 5 mg 11/11/17 10:00 11/13/17 09:59 Norvasc - PO 5 mg DAILY LUAN Administration Atorvastatin Calcium 10 mg 11/11/17 22:00 11/12/17 22:04 Lipitor - PO 10 mg HS LUAN Administration Enoxaparin Sodium 30 mg 11/11/17 18:00 11/13/17 06:57 Lovenox - SQ 30 mg Q12H LUAN Administration Hydrochlorothiazide 25 mg 11/11/17 10:00 11/13/17 09:59 Hctz - PO 25 mg DAILY LUAN Administration Insulin Aspart 1 vial 11/11/17 07:00 11/13/17 11:29 Novolog Vial Sliding Scale - SQ 4 units ACHS LUAN Administration Protocol Metoprolol Tartrate 12.5 mg 11/10/17 23:45 11/13/17 09:59 Lopressor - PO 12.5 mg BID LUAN Administration Non-Formulary Medication 1 tube 11/11/17 10:00 Clobetasol Prop 0.05% Tp Oint [Temovate (Nf)] .ROUTE DAILY LUAN Quinapril HCl 10 mg 11/11/17 10:00 11/13/17 09:59 Accupril - PO 10 mg DAILY LUAN Administration ASSESSMENT/PLAN: 72 year old female with a past medical history of DM, HTN, chronic anemia, breast CA, bilateral total knee replacements was transferred to [facility] per Dr. Abdulaziz Pierre for evaluation and management of R knee fracture. #Right Knee Effusion: knee tap showing 96% neutrophils, 23130 WBC, 90944 RBC, no crystals and cultures returned negative after 4 days -cultures negative for 4 dys -f/u w/ Dr. Holland for orthopedic management - likely lock-knee brace -blood cultures negative -no current abx -ID consult Dr. Fraser -sean for fevers #Right Knee Fracture: stable currently -CT R knee w/o contrast showed R patellar fracture with surrounding hemarthrosis -patient can ambulate but only if her knee is in her brace -Physical therapy request -Dr. Pierre Consult #Lyme History: doesn't appear to be active disease - patient's lab values are with patient - 5 positive IgGs and 1 positive IgM -not likely picture of lyme, possibly previous lyme disease -Dr. arrington consult rheum requested by Dr. Abdulaziz Pierre -Appreciate ID recommendations #Hypertension: stable -Start home amlodipine 5 QD -Start home accupril 10 QD -Start metoprolol 12.5 BID -Start HCTZ 25mg QD #Diabetes: stable -BGMs Q6 -ISS #FEN No standing fluids Replete electrolytes as necessary Diabetic/Sodium diet #Prophylaxis Lovenox 30mg BID #Disposition -Continue to monitor on med-surg Visit type - Emergency Visit Emergency Visit: No - New Patient This patient is new to me today: No - Critical Care Critical Care patient: No
--- NOTE | 2017-11-13 19:03 | PN ---
Teaching Attending Note Name of Resident: Michael Castorena ATTENDING PHYSICIAN STATEMENT I saw and evaluated the patient. I reviewed the resident's note and discussed the case with the resident. I agree with the resident's findings and plan as documented. SUBJECTIVE: No fever or chills. has no pain. OBJECTIVE: NAD MMM. CV: RRR, 3/6 SM at base radiating to carotids, and LLSB. 3/6 SM at [place] with rad to axilla . Lungs: CTAb ext: Thick, hyperpigmented skin with trace edema. b/l knee scars. R knee with dark hyperpigmented skin, no erythema today ,Nl warmth today . DP 2+ cxray reviewed. records from [facility] reviewed. Assessment/Plan: 72 y/o lady with h/o DM , HTN, b/l TKR , chronic anemia, breast cancer s/p lumbectomy and Rtx , who presented to [facility] with R knee pain after a fall on , was found to have R patellar Fx and a knee effusion , and was transferred here for further eval per ortho 1- R knee effusion: with 41k WBC with 96% neutro [facility] called and synovial fluid is Neg to date x 4 days . G stain neg monitor off Abx 2- R patellar Fx : - immobilizer - PT - further mgt per ortho 3- HTN: cont norvasc, HCTZ, accuipril and lopressor. 4- Positive lyme titers, 10/11/17 indicating + igG - No treatment per ID - repeat serology pending 6- DM: SSI, hold orals 7- HLOC possible dc on if cx remain Neg
--- NOTE | 2017-11-13 20:09 | PN ---
Progress Note (short form) - Note Progress Note: 72F s/p mechanical fall 4 days [employer] p/w RIGHT dmitri-prosthetic (TKA) patella fx. Pain well controlled. No acute events overnight. (-) Chest pain, shortness of breath, nausea, vomiting, chills, sweats. (+) Voiding; (+) Flatus; (+) BM. Pt. walked length of the hallway. All labs and vital signs reviewed. Pt. apyrexic. Aleukocytosis. Right knee arthrocentesis ([facility]) Culture: No growth to date x 4 days. PE: AAO x 3, NAD. Right Knee: Skin intact. (+) Diffuse, chronic RLE lymphedema. Midline incision well healed, intact. (-) TTP. (+) Mild warmth, dmitri-articular soft tissue swelling. (-) Erythema, drainage. (+) Sulcus sign over patellar fracture gap w/( +) resolving ecchymosis. Able to SLR w/30 deg. extension lag. PROM 30-110 deg KF. NVI distally. CT R Knee: (+) Transverse patella fracture. Well seated TKA components w/no evidence of loosening. A/P: 72F s/p mechanical fall 4 days [employer] p/w RIGHT dmitri-prosthetic (TKA) patella fx. -Very low clinical concern for septic arthritis right knee. -Pain control. -Chemical & mechanical DVT PPx. -Incentive spirometry. -Maintain right knee immobilizer at all times; will obtain drop-lock hinged right knee brace once all aspiration cultures are negative x 5 days. -PT/OT/Rehab, OOBTC. -TTWB RLE. -f/u ID & rheumatology rec's; no concern for active Lyme's disease at this time. -Hold all empiric antibiotics at this time. If full prosthesis explantation is ultimately indicated, empiric antibiotics may compromise definitive pathogen culture and directed treatment. -Will f/u right knee aspirate Gram Stain & culture ([facility]). -Care per primary medical team. -Will follow. Abdulaziz Pierre MD (Orthopaedic Surgery.
[2017-11-13] MEDS: ACETAMINOPHEN 325 MG TABLET (FP) PO PRN (21:46)
[2017-11-13] MEDS: ATORVASTATIN CA 10 MG TABLET (FP) PO SCH (21:47)
[2017-11-14] MEDS: INSULIN SLIDING SCALE (NOVOLOG) 1 VIAL SQ SCH ×4 (06:40→21:33)
[2017-11-14] MEDS: ENOXAPARIN NA (PORCINE) 30 MG/0.3 ML DISP.SYRIN SQ SCH ×2 (06:40→18:00)
--- NOTE | 2017-11-14 07:22 | PN ---
Teaching Attending Note Name of Resident: Michael Castorena ATTENDING PHYSICIAN STATEMENT I saw and evaluated the patient. I reviewed the resident's note and discussed the case with the resident. I agree with the resident's findings and plan as documented. SUBJECTIVE: Patient is comfortable with no acute distress. OBJECTIVE: Vital Signs Temperature 98.1 F 11/13/17 23:32 Pulse Rate 81 11/13/17 23:32 Respiratory Rate 20 11/13/17 23:32 Blood Pressure 157/62 11/13/17 23:32 O2 Sat by Pulse Oximetry (%) CBCD WBC 5.3 K/mm3 (4.0-10.0) 11/13/17 06:00 RBC 4.84 M/mm3 (3.60-5.2) 11/13/17 06:00 Hgb 10.6 GM/dL (10.7-15.3) L 11/13/17 06:00 Hct 33.3 % (32.4-45.2) 11/13/17 06:00 MCV 68.8 fl (80-96) L 11/13/17 06:00 MCHC 31.9 g/dl (32.0-36.0) L 11/13/17 06:00 RDW 16.4 % (11.6-15.6) H 11/13/17 06:00 Plt Count 210 K/MM3 (134-434) 11/13/17 06:00 MPV 8.9 fl (7.5-11.1) 11/13/17 06:00 CMP Sodium 138 mmol/L (136-145) 11/13/17 06:00 Potassium 4.1 mmol/L (3.5-5.1) 11/13/17 06:00 Chloride 104 mmol/L (98-107) 11/13/17 06:00 Carbon Dioxide 24 mmol/L (21-32) 11/13/17 06:00 Anion Gap 10 (8-16) 11/13/17 06:00 BUN 16 mg/dL (7-18) 11/13/17 06:00 Creatinine 0.7 mg/dL (0.55-1.02) 11/13/17 06:00 Creat Clearance w eGFR > 60 (>60) 11/11/17 01:40 Random Glucose 151 mg/dL (74-106) H 11/13/17 06:00 Calcium 9.0 mg/dL (8.5-10.1) 11/13/17 06:00 Total Bilirubin 1.2 mg/dL (0.2-1.0) H 11/11/17 01:40 AST 55 U/L (15-37) H 11/11/17 01:40 ALT 23 U/L (12-78) 11/11/17 01:40 Alkaline Phosphatase 100 U/L (45-117) 11/11/17 01:40 Total Protein 7.5 g/dl (6.4-8.2) 11/11/17 01:40 Albumin 2.7 g/dl (3.4-5.0) L 11/11/17 01:40 Current Medications Generic Name Dose Route Start Last Admin Trade Name Freq PRN Reason Stop Dose Admin Acetaminophen 650 mg 11/10/17 23:27 11/13/17 21:46 Tylenol - PO 650 mg Q6H PRN Administration PAIN Amlodipine Besylate 5 mg 11/11/17 10:00 11/13/17 09:59 Norvasc - PO 5 mg DAILY LUAN Administration Atorvastatin Calcium 10 mg 11/11/17 22:00 11/13/17 21:47 Lipitor - PO 10 mg HS LUAN Administration Enoxaparin Sodium 30 mg 11/11/17 18:00 11/14/17 06:40 Lovenox - SQ 30 mg Q12H LUAN Administration Hydrochlorothiazide 25 mg 11/11/17 10:00 11/13/17 09:59 Hctz - PO 25 mg DAILY LUAN Administration Insulin Aspart 1 vial 11/11/17 07:00 11/14/17 06:40 Novolog Vial Sliding Scale - SQ 2 units ACHS LUAN Administration Protocol Metoprolol Tartrate 12.5 mg 11/10/17 23:45 11/13/17 21:47 Lopressor - PO 12.5 mg BID LUAN Administration Non-Formulary Medication 1 tube 11/11/17 10:00 Clobetasol Prop 0.05% Tp Oint [Temovate (Nf)] .ROUTE DAILY [facility] Quinapril HCl 10 mg 11/11/17 10:00 11/13/17 09:59 Accupril - PO 10 mg DAILY LUAN Administration Home Medications Medication Instructions Recorded Amlodipine Besylate [Amlodipine 5 mg PO DAILY 11/10/17 Besylate] Clobetasol Prop 0.05% Tp Oint 1 tube .ROUTE DAILY 11/10/17 [Temovate (Nf)] Glipizide 10 mg PO DAILY 11/10/17 Hydrochlorothiazide [Hctz -] 25 mg PO DAILY 11/10/17 Metformin HCl 500 mg PO DAILY 11/10/17 Metoprolol Tartrate [Lopressor -] 12.5 mg PO BID 11/10/17 Quinapril HCl [Accupril] 10 mg PO DAILY 11/10/17 Simvastatin [Simvastatin] 10 mg PO DAILY 11/10/17 PE: comfortable, with NAD Lungs: CTAb CV: RRR, 3/6 SM at base radiating to carotids, and LLSB. 3/6 SM at [place] with rad to axilla . Extremities: no effusion noted rest of PE per resident' s note Assessment/Plan: Patient is a 72 y/o lady with h/o DM , HTN, b/l TKR , chronic anemia, breast cancer s/p lumpectomy and Rtx , who presented to [facility] with R knee pain after a fall on 11/06 , was found to have R patellar Fx and a knee effusion , and was transferred here for further evaluation as per ortho # Acute Right knee effusion s/p Fall with Right Patellar Fx : s/p arthrosentesis : 41k WBC with 96% neutro; as per [facility]: synovial fluid is Neg to date x 4 days . G stain neg , monitor off Abx # R patellar Fx : immobilizer ordered by ortho , PT , patient will be discharged home once immobilizer is available. # HTN: cont norvasc, HCTZ, accuipril and lopressor. # Positive lyme titers, 10/11/17 indicating + igG; No treatment required as per ID. # DM: SSI, hold orals possible dc in am
[2017-11-14 08:04] LABS: HEMATOCRIT 31.6 % (32.4-45.2); HEMOGLOBIN 10.1 GM/dL (10.7-15.3); MCHC 31.9 g/dl (32.0-36.0); MEAN PLT VOLUME 8.2 fl (7.5-11.1); PLATELET COUNT 190 K/MM3 (134-434); RBC 4.58 M/mm3 (3.60-5.2); RDW 16.3 % (11.6-15.6); WHITE BLOOD COUNT 5.2 K/mm3 (4.0-10.0)
[2017-11-14 08:37] LABS: ANION GAP 9 (8-16); BLOOD UREA NITROGEN 20 mg/dL (7-18); CHLORIDE 102 mmol/L (98-107); CO2 26 mmol/L (21-32); CREATININE 0.8 mg/dL (0.55-1.02); GLUCOSE,RANDOM 153 mg/dL (74-106); POTASSIUM 3.8 mmol/L (3.5-5.1); SODIUM 137 mmol/L (136-145)
[2017-11-14] MEDS ORDERED: PT OWN MED DRAWER 7, Y5N ONE (10:36)
[2017-11-14] MEDS: amLODIPine BESYLATE 5 MG TABLET (FP) PO SCH (10:38)
[2017-11-14] MEDS: QUINAPRIL HCL 10 MG TABLET (FP) PO SCH (10:39)
[2017-11-14] MEDS: METOPROLOL TARTRATE 25 MG TABLET (FP) PO SCH ×2 (10:39→21:30)
[2017-11-14] MEDS: HYDROCHLOROTHIAZIDE 25 MG TABLET (FP) PO SCH (10:40)
--- NOTE | 2017-11-14 13:05 | PN ---
Physical Exam: SUBJECTIVE: Patient seen and examined at bedside. No acute changes overnight, denies any new pain. OBJECTIVE: Vital Signs Period Temp Pulse Resp BP Sys/Uribe Pulse Ox Last 24 Hr 98.1 F-99.8 F 78-85 20-20 137-157/60-68 GENERAL: Awake, alert, and fully oriented, in no acute distress. LUNGS: Breath sounds equal, clear to auscultation bilaterally. No wheezes, and no crackles. No accessory muscle use. HEART: Regular rate and rhythm, normal S1 and S2, 4/6 systolic murmur on R and L 2nd intercostal space ABDOMEN: Obese, Soft, nontender, not distended, normoactive bowel sounds, no guarding, no rebound, no masses. No hepatomegaly or splenomegaly. MUSCULOSKELETAL: Normal range of motion in upper extremities, stable ROM of R knee compared to yesterday in flexion. No bony deformities or tenderness. No CVA tenderness. b/l longitudinal scars noted from previous knee replacements. UPPER EXTREMITIES: 2+ pulses, warm, well-perfused. No cyanosis. No clubbing. No peripheral edema. LOWER EXTREMITIES: 2+ pulses, warm, well-perfused. No calf tenderness. bilateral peripheral edema 2+, non-tender to palpation, non-erythematous, scars visible from prior knee replacements NEUROLOGICAL: Cranial nerves II-XII intact. Normal speech. Normal gait. PSYCHIATRIC: Cooperative. Good eye contact. Appropriate mood and affect. SKIN: Warm, dry, normal turgor, no rashes or lesions noted, normal capillary refill. Laboratory Results - last 24 hr 11/13/17 11/13/17 11/14/17 17:02 21:43 05:59 WBC RBC Hgb Hct MCV MCH MCHC RDW Plt Count MPV Sodium Potassium Chloride Carbon Dioxide Anion Gap BUN Creatinine POC Glucometer 264 227 169 Random Glucose Calcium 11/14/17 11/14/17 11/14/17 07:48 07:48 11:51 WBC 5.2 RBC 4.58 Hgb 10.1 L Hct 31.6 L MCV 69.0 L MCH 22.0 L MCHC 31.9 L RDW 16.3 H Plt Count 190 MPV 8.2 Sodium 137 Potassium 3.8 Chloride 102 Carbon Dioxide 26 Anion Gap 9 BUN 20 H Creatinine 0.8 POC Glucometer 226 Random Glucose 153 H Calcium 9.0 Active Medications Generic Name Dose Route Start Last Admin Trade Name Freq PRN Reason Stop Dose Admin Acetaminophen 650 mg 11/10/17 23:27 11/13/17 21:46 Tylenol - PO 650 mg Q6H PRN Administration PAIN Amlodipine Besylate 5 mg 11/11/17 10:00 11/14/17 10:38 Norvasc - PO 5 mg DAILY LUAN Administration Atorvastatin Calcium 10 mg 11/11/17 22:00 11/13/17 21:47 Lipitor - PO 10 mg HS LUAN Administration Enoxaparin Sodium 30 mg 11/11/17 18:00 11/14/17 06:40 Lovenox - SQ 30 mg Q12H LUAN Administration Hydrochlorothiazide 25 mg 11/11/17 10:00 11/14/17 10:40 Hctz - PO 25 mg DAILY LUAN Administration Insulin Aspart 1 vial 11/11/17 07:00 11/14/17 11:55 Novolog Vial Sliding Scale - SQ 4 units ACHS LUAN Administration Protocol Metoprolol Tartrate 12.5 mg 11/10/17 23:45 11/14/17 10:39 Lopressor - PO 12.5 mg BID LUAN Administration Non-Formulary Medication 1 tube 11/11/17 10:00 Clobetasol Prop 0.05% Tp Oint [Temovate (Nf)] .ROUTE DAILY [facility] Quinapril HCl 10 mg 11/11/17 10:00 11/14/17 10:39 Accupril - PO 10 mg DAILY LUAN Administration ASSESSMENT/PLAN: 72 year old female with a past medical history of DM, HTN, chronic anemia, breast CA, bilateral total knee replacements was transferred to [facility] per Dr. Abdulaziz Pierre for evaluation and management of R knee fracture. #Right Knee Effusion: knee tap showing 96% neutrophils, 22546 WBC, 92934 RBC, no crystals and cultures returned negative after 5 days -cultures negative for 5 dys -Dr. Holland will obtain drop-lock hinged right knee brace once all aspiration cultures are negative x 5 days -blood cultures negative -no current abx -ID consult Dr. Fraser -sean for fevers #Right Knee Fracture: stable currently -CT R knee w/o contrast showed R patellar fracture with surrounding hemarthrosis -patient can ambulate but only if her knee is in her brace -Physical therapy request -Dr. Pierre Consult #Lyme History: doesn't appear to be active disease - patient's lab values are with patient - 5 positive IgGs and 1 positive IgM -not likely picture of lyme, possibly previous lyme disease -Dr. arrington consult rheum requested by Dr. Abdulaziz Pierre -Appreciate ID recommendations #Hypertension: stable -Start home amlodipine 5 QD -Start home accupril 10 QD -Start metoprolol 12.5 BID -Start HCTZ 25mg QD #Diabetes: stable -BGMs Q6 -ISS #FEN No standing fluids Replete electrolytes as necessary Diabetic/Sodium diet #Prophylaxis Lovenox 30mg BID #Disposition -Continue to monitor on med-surg Visit type - Emergency Visit Emergency Visit: No - New Patient This patient is new to me today: No - Critical Care Critical Care patient: No
[2017-11-14] MEDS: ATORVASTATIN CA 10 MG TABLET (FP) PO SCH (21:29)
[2017-11-14] MEDS: ACETAMINOPHEN 325 MG TABLET (FP) PO PRN (21:31)
[2017-11-14] MEDS ORDERED: INSULIN (NOVOLOG) ASPART 100 UNITS/ML 10ML VIAL ONE (21:32)
[2017-11-15] MEDS: INSULIN SLIDING SCALE (NOVOLOG) 1 VIAL SQ SCH ×2 (06:07→11:31)
[2017-11-15] MEDS: ENOXAPARIN NA (PORCINE) 30 MG/0.3 ML DISP.SYRIN SQ SCH (06:07)
[2017-11-15] MEDS ORDERED: PT OWN MED DRAWER 7, Y5N ONE (09:50)
[2017-11-15] MEDS: QUINAPRIL HCL 10 MG TABLET (FP) PO SCH (09:51)
[2017-11-15] MEDS: METOPROLOL TARTRATE 25 MG TABLET (FP) PO SCH (09:51)
[2017-11-15] MEDS: HYDROCHLOROTHIAZIDE 25 MG TABLET (FP) PO SCH (09:51)
[2017-11-15] MEDS: amLODIPine BESYLATE 5 MG TABLET (FP) PO SCH (09:51)
--- NOTE | 2017-11-15 09:53 | PN ---
Progress Note (short form) - Note Progress Note: 72F s/p mechanical fall 4 days [employer] p/w RIGHT dmitri-prosthetic (TKA) patella fx. Pain well controlled. No acute events overnight. (-) Chest pain, shortness of breath, nausea, vomiting, chills, sweats. (+) Voiding; (+) Flatus; (+) BM. Pt. walked length of the hallway. All labs and vital signs reviewed. Pt. apyrexic. Aleukocytosis. FINAL Right knee arthrocentesis ([facility]) Culture: 2/3 - growth to date x 5 days; 1/3 (+) Staph. Epidermidis - likely skin contaminant. PE: AAO x 3, NAD. Right Knee: Skin intact. (+) Diffuse, chronic RLE lymphedema. Midline incision well healed, intact. (-) TTP. (+) Mild warmth, dmitri-articular soft tissue swelling. (-) Erythema, drainage. (+) Sulcus sign over patellar fracture gap w/( +) resolving ecchymosis. Able to SLR w/30 deg. extension lag. PROM 30-110 [address]F. [address]VI dist[address]. CT R Knee: (+) Transverse patella fracture. Well seated TKA components w/no evidence of loosening. A/P: 72F s/p mechanical fall 4 days [employer] p/w RIGHT dmitri-prosthetic (TKA) patella fx. -Very low clinical concern for septic arthritis right knee. -Pain control. -Chemical & mechanical DVT PPx. -Incentive spirometry. -Right knee drop-lock brace when out of bed and ambulating. -PT/OT/Rehab, OOBTC. -WBAT RLE. -f/u ID & rheumatology rec's; no concern for active Lyme's disease at this time. -Care per primary medical team. -Discharge planning: Follow-up with [facility] [place] office within the next 1-2 weeks: . -Do not discharge with PO Abx; 1/3 (+) arthrocentesis likely due to skin contaminant. -Will follow. Abdulaziz Pierre MD (Orthopaedic Surgery.
[2017-11-15 10:57] VITALS: BP 125/50; PULSE 70; TEMP 98.3
--- NOTE | 2017-11-15 14:19 | DS ---
Physical Exam: SUBJECTIVE: Patient seen and examined at bedside. No acute complaints and no overnight events. Patient is able to ambulate on her own with knee-lock brace. OBJECTIVE: Vital Signs Period Temp Pulse Resp BP Sys/Uribe Pulse Ox Last 24 Hr 97.9 F-98.9 F 70-83 20-20 125-141/50-78 98 PHYSICAL EXAM GENERAL: Awake, alert, and fully oriented, in no acute distress. LUNGS: Breath sounds equal, clear to auscultation bilaterally. No wheezes, and no crackles. No accessory muscle use. HEART: Regular rate and rhythm, normal S1 and S2, 4/6 systolic murmur on R and L 2nd intercostal space ABDOMEN: Obese, Soft, nontender, not distended, normoactive bowel sounds, no guarding, no rebound, no masses. No hepatomegaly or splenomegaly. MUSCULOSKELETAL: Normal range of motion in upper extremities, stable ROM of R knee compared to yesterday in flexion. No bony deformities or tenderness. No CVA tenderness. b/l longitudinal scars noted from previous knee replacements. UPPER EXTREMITIES: 2+ pulses, warm, well-perfused. No cyanosis. No clubbing. No peripheral edema. LOWER EXTREMITIES: 2+ pulses, warm, well-perfused. No calf tenderness. bilateral peripheral edema 2+, non-tender to palpation, non-erythematous, scars visible from prior knee replacements NEUROLOGICAL: Cranial nerves II-XII intact. Normal speech. Normal gait. PSYCHIATRIC: Cooperative. Good eye contact. Appropriate mood and affect. SKIN: Warm, dry, normal turgor, no rashes or lesions noted, normal capillary refill. LABS Laboratory Results - last 24 hr 11/11/17 11/14/17 11/14/17 14:47 17:20 21:29 POC Glucometer 243 240 Lyme Screen IgG & IgM 1.08 H Lyme IgM ([place]ot) Negative 11/15/17 11/15/17 06:06 11:27 POC Glucometer 155 239 Lyme Screen IgG & IgM Lyme IgM (Western Blot) HOSPITAL COURSE: Date of Admission:11/10/17 72 year old female with a past medical history of DM, HTN, chronic anemia, breast CA, bilateral total knee replacements was transferred to [facility] per Dr. Abdulaziz Pierre for evaluation and management of right sided longitudinal patellar knee fracture s/p mechanical fall. When she was at [facility], her R knee was swollen and tender. The knee was tapped and aspirate returned 96% neutrophils, 91108 WBC, 39210 RBC, no crystals and cultures returned negative after 5 days. Patient was evaluated by Dr. Pierre, who suggested that the best management is non-surgical. She was fitted for a knee-lock brace and was able to walk 50+ feet on her own with it without any pain. Patient was discharged with instructions to follow with Dr. Pierre as an outpatient at the [facility] in the [place]. Date of Discharge: 11/15/17 Minutes to complete discharge: 35 <Michael Castorena - Last Filed: 11/15/17 14:20> Physical Exam: Patient is seen and examined with the resident. patient is wearing her immobilizer and is able to walk comfortably. Follow with within a week period. <Kylee Bergeron - Last Filed: 11/15/17 17:42> Discharge Summary Reason For Visit: MECHANICAL FALL, PATELLA FRACTURE - Home Medications Comprehensive Discharge Medication List: Ambulatory Orders Amlodipine Besylate 5 mg PO DAILY 11/10/17 Clobetasol Prop 0.05% Tp Oint [Temovate (Nf)] 1 tube .ROUTE DAILY 11/10/17 Glipizide 10 mg PO DAILY 11/10/17 Hydrochlorothiazide [Hctz -] 25 mg PO DAILY 11/10/17 Metformin HCl 500 mg PO DAILY 11/10/17 Metoprolol Tartrate [Lopressor -] 12.5 mg PO BID 11/10/17 Quinapril HCl [Accupril -] 10 mg PO DAILY 11/10/17 Simvastatin 10 mg PO DAILY 11/10/17 Lidocaine 5% Patch [Lidoderm -] 1 patch TP DAILY #30 patch 11/14/17 <Michael Castorena - Last Filed: 11/15/17 14:20> - Home Medications Comprehensive Discharge Medication List: Ambulatory Orders Amlodipine Besylate 5 mg PO DAILY 11/10/17 Clobetasol Prop 0.05% Tp Oint [Temovate (Nf)] 1 tube .ROUTE DAILY 11/10/17 Glipizide 10 mg PO DAILY 11/10/17 Hydrochlorothiazide [Hctz -] 25 mg PO DAILY 11/10/17 Metformin HCl 500 mg PO DAILY 11/10/17 Metoprolol Tartrate [Lopressor -] 12.5 mg PO BID 11/10/17 Quinapril HCl [Accupril -] 10 mg PO DAILY 11/10/17 Simvastatin 10 mg PO DAILY 11/10/17 Lidocaine 5% Patch [Lidoderm -] 1 patch TP DAILY #30 patch 11/14/17 <Kylee Bergeron - Last Filed: 11/15/17 17:42> Condition: Improved - Instructions Diet, Activity, Other Instructions: You were admitted to the hospital for a right patellar fracture. There was no infection within your right knee joint. Lidocaine patches will be prescribed to you as an outpatient. Continue taking your home medications as before Medical Recommendations: -Please follow with Dr. Abdulaziz Holland at the [facility] office within the next 1-2 weeks: -Please make an appointment with your primary care physician within 1 week of discharge If you experience any fevers, chills, nausea, vomiting, diarrhea, excruciating pain, please return to the emergency immediately. Referrals: Abdulaziz Pierre MD [Staff Physician] - 1 Month Disposition: VNS/HOME HEALTH CARE This patient is new to me today: No Emergency Visit: No Critical Care patient: No - Discharge Referral Referred to [facility] No <Michael Castorena - Last Filed: 11/15/17 14:20>
== END 2017-11-15 14:30 | disposition home health service (06) | DRG 563 ==
LOC: J6S 19:18
PROVIDERS: ADMIT Internal Medicine; ATTEND Internal Medicine
DX: S82.031A Displaced transverse fracture of right patella, initial encounter for closed fracture (principal); M97.11XA Periprosthetic fracture around internal prosthetic right knee joint, initial encounter; W01.0XXA Fall on same level from slipping, tripping and stumbling without subsequent striking against object, initial encounter; Y93.89 Activity, other specified; Y92.098 Other place in other non-institutional residence as the place of occurrence of the external cause; I10 Essential (primary) hypertension; D50.0 Iron deficiency anemia secondary to blood loss (chronic); E11.9 Type 2 diabetes mellitus without complications; E66.8 Other obesity; Z68.36 Body mass index [BMI] 36.0-36.9, adult; M25.461 Effusion, right knee; R01.1 Cardiac murmur, unspecified; Z96.653 Presence of artificial knee joint, bilateral; Z85.3 Personal history of malignant neoplasm of breast; Z86.19 Personal history of other infectious and parasitic diseases
CPT/HCPCS: 36415; 71045-TC; 73700-TC-RT; 80048; 80053; 82728; 82962; 83735; 84100; 84132; 85025; 85027; 85651; 86140; 86618; 86850; 86900; 86901; 87040; 97116-GP; 97161-GP